=== PATIENT | male | born 1985 | race African-American/Black ===

== ENCOUNTER 2022-12-28 17:14 | Emergency (ER) | payer SELFPAY ==
[2022-12-28 17:56] VITALS: BP 134/83; PULSE 69; RESP 18; TEMP 36.5; O2SAT 100
[2022-12-28 18:13] VITALS: BP 134/83; PULSE 69; RESP 18; TEMP 36.5; O2SAT 100
--- NOTE | 2022-12-28 18:44 | ED.SKABFB ---
HPI - Skin/Abscess/Foreign Bdy General Chief complaint: Skin/Abscess/Foreign Body Stated complaint: lip swollen right side Time Seen by Provider: 12/28/22 18:39 Source: patient and RN notes reviewed Mode of arrival: ambulatory Limitations: no limitations History of Present Illness HPI narrative: Patient presents today complaining of swelling to the right upper lip. He was stung by a bee approximately 2 hours prior to exam and it started to swell. He took a dose of Tylenol prior to arrival. Denies difficulty swallowing, shortness of breath, scratchiness in the throat. He was eating [employer] in the waiting room without difficulty. He is not driving home. Related Data Home Medications Medication Instructions Recorded Confirmed No Home Medications 12/28/22 12/28/22 Allergies Allergy/AdvReac Type Severity Reaction Status Date / Time coconut Allergy Unknown Verified 12/28/22 18:13 Review of Systems Review of Systems: CONSTITUTIONAL: Denies body aches, fever, chills, or sweats. EYES: Denies visual changes, redness, or discharge. ENT: Denies rhinorrhea, congestion, sore throat, or otalgia.+ bee sting to right upper lip CARDIOVASCULAR: Denies chest pain, palpitations, or edema. RESPIRATORY: Denies cough or dyspnea. GASTROINTESTINAL: Denies abdominal pain, nausea, vomiting, or diarrhea. GENITOURINARY: Denies dysuria or hematuria. SKIN: Denies rash, itching, or wounds. MUSCULOSKELETAL: Denies back pain, joint pain, or myalgia. NEUROLOGIC: Denies headache, numbness, tingling, or weakness. PSYCH: Denies depression or anxiety. PMFSH Comments At time of signature, I have reviewed and agree with nursing past medical, surgical, social and family history unless otherwise noted. Please see nursing chart for further information. There is no relevant family history pertinent to the presenting complaint Exam Narrative: GENERAL: Well-appearing, well-nourished, and in no acute distress. HEAD: Normocephalic, atraumatic. EYES: EOMI. No redness or drainage. Conjunctivae normal. ENT: Mucous membranes pink and moist. Nares clear. No rhinorrhea. Throat normal. Uvula midline. Moderate swelling to right upper lip. NECK: Normal AROM. Supple. No lymphadenopathy. CHEST: No respiratory distress. Clear to auscultation. HEART: Regular rate and rhythm. No murmur appreciated. Normal peripheral pulses. EXTREMITIES: Normal range of motion. No edema. SKIN: Warm, dry, no rash. Capillary refill normal. Normal skin turgor. NEURO: No focal deficits. Alert and oriented x3. Gait steady. PSYCH: Normal affect. No signs of depression or anxiety. Course Course Level of Care: Express Care Visit Vital Signs Vital signs: Vital Signs Temperature 97.7 F 12/28/22 17:56 Pulse Rate 69 12/28/22 17:56 Respiratory Rate 18 12/28/22 17:56 Blood Pressure 134/83 12/28/22 17:56 Pulse Oximetry 100 12/28/22 17:56 Oxygen Delivery Room Air 12/28/22 17:56 Temperature 97.7 F 12/28/22 18:13 Pulse Rate 69 12/28/22 18:13 Respiratory Rate 18 12/28/22 18:13 Blood Pressure 134/83 12/28/22 18:13 Pulse Oximetry 100 12/28/22 18:13 Oxygen Delivery Room Air 12/28/22 18:13 Reviewed. Pt has been instructed to follow up with his PCP regarding his elevated blood pressure today. MDM - Skin/Abscess/Foreign Bdy MDM Narrative Medical decision making narrative: Patient given Benadryl and prednisone for his symptoms. No additional prescription medications necessary. Instructed to take Benadryl at home if needed. Anticipatory guidance given. Differential Diagnosis Differential diagnosis: Likely other (Insect sting) Critical Care Time Critical Care Time Critical Care Time: No Discharge Plan Discharge Clinical Impression: Bee sting Qualifiers: Encounter type: initial encounter Injury intent: accidental or unintentional Qualified Code(s): T63.441A - Toxic effect of venom of bees, accidental (unintentional), initial
[2022-12-28] MEDS: diphenhydrAMINE HCl CAP 25 MG CAPSULE 50 MG PO (18:51)
[2022-12-28] MEDS: predniSONE 10 MG TABLET PO (18:52)
[2022-12-28] MEDS: predniSONE 20 MG TABLET 40 MG PO (18:52)
== END 2022-12-28 19:06 | disposition home or self-care (01) ==
PROVIDERS: Emergency Provider Nurse Practitioner; PCP Emergency Medicine
DX: T63.441A Toxic effect of venom of bees, accidental (unintentional), initial encounter (principal)
CPT/HCPCS: 99213; A9270; G0463; J7512